=== PATIENT | female | born 1995 | race Hispanic/Latino ===

== ENCOUNTER 2017-11-02 17:37 | Emergency (ER) | payer SELFPAY ==
[2017-11-02 18:19] LABS: Absolute Lymphocytes (CBC) 2.5 K/uL (0.7-4.9); Absolute Monocytes 0.5 K/uL (0.1-1.3); Absolute Neutrophil 7.4 K/uL (1.8-8.0); Basophils % 0.5 % (0-1.3); Eosinophils % 1.6 % (0-4.4); Hematocrit 38.8 % (36.0-45.0); Lymphocytes % 23.4 % (15.3-44.8); MCH 29.8 pg (27.0-35.0); MCV 88.8 fL (80-100); MPV 8.3 fL (7.6-11.3); Monocytes % 4.6 % (3.3-12.3); RBC Red Blood Cell Count 4.37 M/uL (3.86-4.86)
[2017-11-02 18:34] LABS: BUN Blood Urea Nitrogen 8 mg/dL (6-20); Bicarbonate 28 mEq/L (21-31); Glucose Level 90 mg/dL (65-120); Potassium 3.2 mEq/L (3.6-5.0); Sodium Level 141 mEq/L (135-145)
[2017-11-02 18:39] LABS: Urine Blood NEGATIVE (NEG); Urine Glucose NEGATIVE (NEG); Urine Protein 1+ (NEG); Urine Specific Gravity >1.030 (1.005-1.030); Urine pH 5.5 (5.0-7.0)
[2017-11-02] MEDS ORDERED: ACETAMINOPHEN 500 MG TAB ONE (19:52)
--- NOTE | 2017-11-02 20:07 | RAD REPORT ---
EXAM DESCRIPTION: US - Transvaginal OB - 11/02/2017 7:40 pm CLINICAL HISTORY: Pelvic pain COMPARISON: None. FINDINGS: A single gestational sac is seen within the uterus. Mean sac diameter is 10 mm correspondi ng to 5 weeks 4 days gestational age. No yolk sac or embryo is detected this time. Both ovaries are normal size, shape and echotexture with normal Doppler blood flow. IMPRESSION: Findings of an early IUP are present with a gestational sac noted.No embryonic component s are seen at this time. Advise followup sonography in 10-12 days.
[2017-11-02] MEDS ORDERED: POTASSIUM 25 MEQ EFFERV TAB ONE (20:35)
--- NOTE | 2017-11-02 21:52 | EDPHYS ---
Physician Documentation [facility] Name: Amanda Alvarado Age: 22 yrs Sex: Female : 1995 Arrival Date: 11/02/2017 Time: 17:41 Bed 15 Private MD: ED Physician Nicholas Ahumada HPI: 11/02 17:56 This 22 yrs old Female presents to ER via Ambulatory with complaints of 6wks cp , Abdominal Cramping. 17:56 The patient presents to the emergency department with abdominal pain, of the right cp lower abdomen, that started 3 day(s) ago, described as crampy. The estimated gestational age is 6 weeks. 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 - Social history:: Smoking status: Patient/guardian denies using tobacco. ROS: 18:00 Constitutional: Negative for body aches, chills, fever, poor PO intake. cp 18:00 Eyes: Negative for injury, pain, redness, and discharge. cp 18:00 ENT: Negative for drainage from ear(s), ear pain, sore throat, difficulty swallowing, cp difficulty handling secretions. 18:00 Cardiovascular: Negative for chest pain, edema, palpitations. cp 18:00 Respiratory: Negative for cough, shortness of breath, wheezing. 18:00 Abdomen/GI: Positive for abdominal cramps, of the right lower quadrant, Negative for vomiting, diarrhea, constipation, anorexia. 18:00 Back: Negative for radiated pain. 18:00 : Positive for vaginal discharge, Negative for urinary symptoms, vaginal bleeding. 18:00 Skin: Negative for cellulitis, rash. 18:00 All other systems are negative. Exam: 18:10 Constitutional: The patient appears in no acute distress, alert, awake, cp non-diaphoretic, non-toxic, well developed, well nourished. 18:10 Head/Face: Normocephalic, atraumatic. cp 18:10 Eyes: Periorbital structures: appear normal, Conjunctiva: normal, Sclera: no cp appreciated abnormality, Lids and lashes: appear normal, bilaterally. 18:10 ENT: External ear(s): are unremarkable, Nose: is normal, Mouth: is normal, Posterior pharynx: is normal, airway is patent. 18:10 Chest/axilla: Inspection: normal, Palpation: is normal, no crepitus, no tenderness. 18:10 Cardiovascular: Rate: normal, Rhythm: regular. 18:10 Respiratory: the patient does not display signs of respiratory distress, Respirations: cp normal, no use of accessory muscles, no retractions, no splinting, no tachypnea, labored breathing, is not present, Breath sounds: are clear throughout, no decreased breath sounds, no stridor, no wheezing. 18:10 Abdomen/GI: Inspection: abdomen appears normal, Bowel sounds: active, all quadrants, Palpation: soft, in all quadrants, mild abdominal tenderness, in the right lower quadrant, rebound tenderness, is not appreciated, voluntary guarding, is not appreciated, involuntary guarding, is not appreciated. 18:10 Back: pain, is absent, ROM is normal. cp 18:10 Skin: cellulitis, is not appreciated, no rash present. 21:14 : Pelvic Exam: External exam: is normal, Speculum exam: no bleeding is noted, no cp cervicitis, os that is closed, bimanual exam reveals normal findings, discharge, Debbie guevara, CHANDRA. Sexual behavior: the patient is sexually active, and reports a single partner. Vital Signs: 17:43 BP 143 / 81; Pulse 85; Resp 16; Temp 98.4; Pulse Ox 100% on R/A; Weight 81.65 kg; la1 Height 4 ft. 9 in. (144.78 cm); 19:38 BP 116 / 75; Pulse 88; Resp 17 S; Pulse Ox 99% on R/A; jd3 21:00 BP 121 / 75; Pulse 91; Resp 17 S; Pulse Ox 99% on R/A; jd3 17:43 Body Mass Index 38.95 (81.65 kg, 144.78 cm) la1 MDM: 17:46 Patient medically screened. cp 18:00 Differential diagnosis: STD, ectopic , UTI. cp 21:50 Data reviewed: vital signs, nurses notes, lab test result(s), radiologic studies, cp ultrasound. 21:50 Counseling: I had a detailed discussion with the patient and/or guardian regarding: the cp historical points, exam findings, and any diagnostic results supporting the discharge/admit diagnosis, lab results, radiology results, the need for outpatient follow up, an OB/Gyne specialist, to return to the emergency department if symptoms worsen or persist or if there are any questions or concerns that arise at home. 21:50 Response to treatment: the patient's symptoms have markedly improved after treatment. cp 21:50 Special discussion: Based on the patient's Hx, exam, and Dx evaluation, there is no cp indication for emergent surgery or inpatient Tx. It is understood by the patient/guardian that if the Sx's persist or worsen they need to return immediately for re-evaluation. 11/02 17:56 Order name: Quantitative Hcg; Complete Time: 19:10 11/02 19:10 Interpretation: HCGQ 73011.0; Reviewed. 11/02 17:56 Order name: Abo/rh Typing; Complete Time: 18:59 11/02 18:59 Interpretation: Reviewed. 11/02 17:56 Order name: Basic Metabolic Panel; Complete Time: 19:10 11/02 18:45 Interpretation: Normal except: K 3.2. 11/02 17:56 Order name: CBC with Diff; Complete Time: 18:44 11/02 18:10 Order name: Urine Dipstick--Ancillary (enter results) ms 11/02 18:10 Order name: Urine --Ancillary (enter results) ms 11/02 18:11 Order name: Urine Dipstick-Ancillary; Complete Time: 18:44 EDNE 11/02 18:45 Interpretation: Normal except: UKET 1+; UPROT 1+. 11/02 18:11 Order name: Urine --Ancillary; Complete Time: 18:44 EDNE 11/02 19:18 Order name: Transvaginal OB; Complete Time: 20:10 EDNE 11/02 20:23 Order name: Wet Prep; Complete Time: 21:50 11/02 20:23 Order name: GC (GONORR/CHLAMYDIA) Probe 11/02 17:56 Order name: Urine Test (obtain specimen); Complete Time: 18:03 11/02 17:56 Order name: IV Saline Lock; Complete Time: 18:13 cp 11/02 17:56 Order name: Labs collected and sent; Complete Time: 18:13 cp 11/02 17:56 Order name: NPO; Complete Time: 18:03 cp 11/02 17:56 Order name: Urine Dipstick-Ancillary (obtain specimen); Complete Time: 18:03 cp 11/02 20:23 Order name: Pelvic Exam Setup; Complete Time: 20:55 cp Administered Medications: 19:38 Drug: Tylenol 1000 mg Route: PO; jd3 22:03 Follow up: Response: No adverse reaction jd3 20:21 Drug: Potassium Effervescent Tablet 50 mEq Route: PO; jd3 22:02 Follow up: Response: No adverse reaction jd3 Disposition: 11/02/17 21:51 Discharged to Home. Impression: related conditions, unspecified, first trimester, Lower abdominal pain, unspecified. - Condition is Stable. - Discharge Instructions: Abdominal Pain During , Medicines During , Pelvic Rest. - Prescriptions for Vitamin 27- 0.8 mg Oral Tablet - take 1 tablet by ORAL route once daily; 60 tablet. - Medication Reconciliation Form, Thank You Letter, Antibiotic Education, Prescription Opioid Use form. - Follow up: Private Physician; When: primary SCHEDULE SUPERVISOR, next 10-14 days; Reason: Recheck today's complaints. - Problem is new. - Symptoms have improved. - Notes: pelvic rest until follow-up and release by SCHEDULE SUPERVISOR Addendum: 11/04/2017 07:27 Co-signature as Attending Physician, Nicholas Ahumada MD. g s Signatures: Dispatcher [employer] EDMS Yuri Lugo RN RN la1 Kishan Lizama PA PA cp Starr, Gregory, MD MD gs Grant Garcia RN RN jd3 Corrections: (The following items were deleted from the chart) 11/02 19:18 19:11 Transvaginal Study (Probe)+[email or web address].RAD.[email or web address] ordered. EDMS EDMS
--- NOTE | 2017-11-02 21:52 | ER ---
Nurse's Notes [facility] Name: Amanda Alvarado Age: 22 yrs Sex: Female : 1995 Arrival Date: 11/02/2017 Time: 17:41 Bed 15 Private MD: Diagnosis: related conditions, unspecified, first trimester;Lower abdominal pain, unspecified Presentation: 11/02 17:42 Presenting complaint: Patient states: LMP 09/21/2017. abd cramping for 3 days. No la1 bleeding. Transition of care: patient was not received from another setting of care. Onset of symptoms was November 02, 2017. Care prior to arrival: None. 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 - Social history:: Smoking status: Patient/guardian denies using tobacco. Screenin:03 Abuse screen: Denies threats or abuse. Nutritional screening: No deficits noted. em Tuberculosis screening: No symptoms or risk factors identified. Fall Risk None identified. Assessment: 17:55 General: Appears in no apparent distress. comfortable, Behavior is calm, cooperative. em Pain: Complains of pain in right inguinal area Pain currently is 6 out of 10 on a pain scale. Quality of pain is described as crampy, Pain began 2-3 days ago. Neuro: Level of Consciousness is awake, alert, obeys commands, Oriented to person, place, time, situation. Cardiovascular: Capillary refill < 3 seconds Patient's skin is warm and dry. Respiratory: Airway is patent Respiratory effort is even, unlabored, Respiratory pattern is regular, symmetrical. GI: Abdomen is round non-distended, Bowel sounds present X 4 quads. Abd is soft X 4 quads Abdomen is tender to palpation in right lower quadrant Patient currently denies diarrhea, nausea, vomiting. : Urine is clear. EENT: No signs and/or symptoms were reported regarding the EENT system. Derm: Skin is intact, Skin is pink, warm \T\ dry. Musculoskeletal: Range of motion: intact in all extremities. 18:06 Reassessment: Patient appears in no apparent distress at this time. I agree with above iw assessment by Chao Gonzalez LVN. 18:37 Reassessment: Patient appears in no apparent distress at this time. Patient and/or em family updated on plan of care and expected duration. Pain level reassessed. Patient is alert, oriented x 3, equal unlabored respirations, skin warm/dry/pink. 19:39 Reassessment: Patient appears in no apparent distress at this time. No changes from jd3 previously documented assessment. Patient and/or family updated on plan of care and expected duration. Pain level reassessed. Patient is alert, oriented x 3, equal unlabored respirations, skin warm/dry/pink. 21:01 Reassessment: Patient appears in no apparent distress at this time. Patient and/or jd3 family updated on plan of care and expected duration. Pain level reassessed. Patient is alert, oriented x 3, equal unlabored respirations, skin warm/dry/pink. Patient states feeling better. 21:52 Reassessment: Patient appears in no apparent distress at this time. Patient and/or jd3 family updated on plan of care and expected duration. Pain level reassessed. Patient is alert, oriented x 3, equal unlabored respirations, skin warm/dry/pink. Patient states feeling better. 22:00 Reassessment: Patient appears in no apparent distress at this time. Patient and/or jd3 family updated on plan of care and expected duration. Pain level reassessed. Patient is alert, oriented x 3, equal unlabored respirations, skin warm/dry/pink. pt reported understanding of discharge instructions, even and steady gait upon discharge. Vital Signs: 17:43 BP 143 / 81; Pulse 85; Resp 16; Temp 98.4; Pulse Ox 100% on R/A; Weight 81.65 kg; la1 Height 4 ft. 9 in. (144.78 cm); 19:38 BP 116 / 75; Pulse 88; Resp 17 S; Pulse Ox 99% on R/A; jd3 21:00 BP 121 / 75; Pulse 91; Resp 17 S; Pulse Ox 99% on R/A; jd3 17:43 Body Mass Index 38.95 (81.65 kg, 144.78 cm) la1 ED Course: 17:41 Patient arrived in ED. mr 17:43 Triage completed. la1 17:44 Arm band placed on left wrist. la1 17:46 Kishan Lizama PA is PHCP. cp 17:46 Nicholas Ahumada MD is Attending Physician. cp 17:51 Chao Gonzalez LVN is Primary Nurse. em 18:03 Patient has correct armband on for positive identification. Placed in gown. Bed in low em position. Call light in reach. Side rails up X2. 18:03 No provider procedures requiring assistance completed. em 19:02 Primary Nurse role handed off by Chao Gonazlez LVN rg2 19:13 Report given to CHANDRA Burns. em 19:29 Grant Garcia RN is Primary Nurse. jd3 19:40 Ultrasound completed. Patient tolerated well. cy 19:40 Transvaginal OB In Process Unspecified. EDMS 22:02 IV discontinued, intact, bleeding controlled, No redness/swelling at site. Pressure jd3 dressing applied. Administered Medications: 19:38 Drug: Tylenol 1000 mg Route: PO; jd3 22:03 Follow up: Response: No adverse reaction jd3 20:21 Drug: Potassium Effervescent Tablet 50 mEq Route: PO; jd3 22:02 Follow up: Response: No adverse reaction jd3 Outcome: 21:51 Discharge ordered by MD. cp 22:01 Discharged to home ambulatory. jd3 22:01 Condition: stable 22:01 Discharge instructions given to patient, Instructed on discharge instructions, follow up and referral plans. medication usage, Demonstrated understanding of instructions, follow-up care, medications, Prescriptions given X 1. 22:03 Patient left the ED. jd3 Signatures: Dispatcher [employer] EDMS Sabine Rhodes rg2 Francia Lester Chao Gonzalez LVN GEOMAGNETICIAN em Mely Flannery RN RN Yuri Lugo RN RN la1 Kishan Lizama PA PA cp Davies, Jonathon, RN RN jChandrika Pickering cy
[2017-11-05 20:03] LABS: C.trachomatis RNA,TMA Not Detected (Not Detected)
== END 2017-11-02 22:03 | disposition home or self-care (01) ==
LOC: ER 17:37
DX: R10.30 Lower abdominal pain, unspecified (principal); Z3A.01 Less than 8 weeks gestation of pregnancy
CPT/HCPCS: 36415; 76817; 80048; 81003; 81025; 84702; 85025; 86900; 86901; 87210; 87490; 87590; 99283

== ENCOUNTER 2018-06-15 21:09 | Inpatient (IN) | payer OTHER ==
[2018-06-16] MEDS ORDERED: MIDAZOLAM HCL 2 MG/2 ML INJ IV PRN (05:45)
[2018-06-16] MEDS ORDERED: PENICILLIN 5 MU in NA CHLORIDE 0.9% 100 ML IV ONE (05:45)
[2018-06-16] MEDS ORDERED: MEPERIDINE HCL 25 MG/0.5 ML IV PRN (05:45)
[2018-06-16] MEDS ORDERED: METHYLERGONOVINE 0.2MG/ML AMP IM PRN (05:45)
[2018-06-16] MEDS ORDERED: BUTORPHANOL 1 MG/ML INJ IV PRN (05:45)
[2018-06-16] MEDS ORDERED: CARBOPROST TROME 250 MCG/ML IM PRN (05:45)
[2018-06-16] MEDS ORDERED: Ringers Lactate 1,000 ML IV PRN (05:45)
[2018-06-16] MEDS ORDERED: PROMETHAZINE 25 MG/ML VIAL IM PRN (05:45)
[2018-06-16] MEDS ORDERED: PENICILLIN G POT 5 MU/100 ML BAG IV ONE (05:57)
[2018-06-16] MEDS ORDERED: Ringers Lactate 1,000 ML IV SCH (06:00)
[2018-06-16] MEDS ORDERED: OXYTOCIN/LR 20 UNITS/1,000 ML BAG IV SCH (06:00)
[2018-06-16 06:27] VITALS: BMI 52.3
[2018-06-16 06:42] LABS: RPR Titer ND
[2018-06-16 07:11] LABS: Absolute Lymphocytes (CBC) 1.8 K/uL (0.7-4.9); Absolute Monocytes 0.5 K/uL (0.1-1.3); Absolute Neutrophil 7.2 K/uL (1.8-8.0); Eosinophils % 1.2 % (0-4.4); Hematocrit 34.1 % (36.0-45.0); Lymphocytes % 18.8 % (15.3-44.8); MCH 30.9 pg (27.0-35.0); MPV 9.9 fL (7.6-11.3); Monocytes % 5.5 % (3.3-12.3); RBC Red Blood Cell Count 3.79 M/uL (3.86-4.86)
[2018-06-16] MEDS ORDERED: FENTANYL/BUPIVACAINE/NS/PF 200 MCG/100 ML BAG EP PRN (07:43)
[2018-06-16] MEDS ORDERED: FENTANYL CITR 100 MCG/2 ML IV ONE (07:44)
[2018-06-16] MEDS ORDERED: ROPIVACAINE HCL 0.2% 20ML AMP IV ONE (07:49)
[2018-06-16] MEDS ORDERED: BUPIVACAINE 0.25% PF 10 ML VIAL IV ONE (08:56)
[2018-06-16] MEDS ORDERED: PENICILLIN 2.5 MU in NA CHLORIDE 0.9% 100 ML IV SCH (09:00)
--- NOTE | 2018-06-16 09:19 | PREOPHP ---
Date of Admission: 06/15/2018 This is a 23-year-old 2, para 1, best estimate is 38 weeks, possibly 38 weeks 1 day, came in last night, noted to be 4 cm, progressed to 5 cm. We are now starting penicillin prophylaxis as she is beta strep positive. We will start Pitocin augmentation and rupture of membranes sometime within next half hour to hour. Full labor talk given. She is Rh positive, immune to Rubella. Anticipate d elivery sometime later today. The patient had epidural with her first labor and delivery, has not ex pressed a desire for any kind of medications at this point. LEIGH/GIANLUCA Voice ID: [id number]
--- NOTE | 2018-06-16 12:01 | PN ---
The patient is now 5-1/2, 70% effaced, vertex, -1 station, well applied. Rupture of membranes, clear fluid. Brooks regularly now. Anticipate more rapid progress from this point forward. LEIGH/GIANLUCA Voice ID: [id number] Report ID: [id number]
[2018-06-16] MEDS ORDERED: DIPHENHYDRAMINE 25 MG TAB/CAP PO PRN (13:08)
[2018-06-16] MEDS ORDERED: DOCUSATE NA/SENNA CONC 1 TAB PO PRN (13:08)
[2018-06-16] MEDS ORDERED: Oxycodone HCl/Acetaminophen 1 TAB TAB PO PRN ×2 (13:08)
[2018-06-16] MEDS ORDERED: ACETAMINOPHEN 500 MG TAB PO PRN (13:08)
[2018-06-16] MEDS ORDERED: BISACODYL 10 MG RECTAL SUPP RECT PRN (13:08)
[2018-06-16] MEDS ORDERED: IBUPROFEN 200 MG TAB PO PRN (13:08)
--- NOTE | 2018-06-16 13:52 | PN ---
The patient is 9+, +1 station, just about ready to start pushing. LEIGH/GIANLUCA Voice ID: [id number] Report ID: [id number]
--- NOTE | 2018-06-16 13:55 | OP ---
Surgeon: Antonio Ochoa MD A 23-year-old, 2, para 1, best estimate 38 weeks and 1 day, came in 4 cm, during the period o f observation changed to 5 cm. She was started on penicillin prophylaxis as she was beta strep posit faby. Two doses were given during the labor. At 5 cm, about an hour and a half after the penicillin had been started, she was started on Pitocin and rupture of membranes was performed. The patient deisy t rapidly to complete. She received epidural anesthesia at approximately 6 to 7 cm. Second stage of 20 minutes approximately. Spontaneous vaginal delivery of an estimated 7-pound female, Apgars 8 and 9. No episiotomy. No lacerations. Potts delivery of the placenta was inspected and noted to be intact and normal. Less than 300 cc blood loss. The patient is Rh positive, immune to Rubella. Adriana erated all procedures well. Final Diagnoses: Intrauterine gestation, 38 weeks and 1 day, spontaneous labor, vaginal delivery, ep idural anesthesia, penicillin prophylaxis. LEIGH/GIANLUCA Voice ID: [id number] Report ID: [id number]
[2018-06-16] MEDS ORDERED: OXYTOCIN/LR 20 UNIT/1,000 ML BAG IV SCH (14:00)
[2018-06-16 22:47] LABS: RPR (Rapid Plasma Reagin) NON-REACT (NON-REACT)
[2018-06-17 13:59] VITALS: BP 120/81; TEMP 97
--- NOTE | 2018-06-18 03:54 | DS ---
Date of Discharge: 06/17/2018 Hospital Course: A 23-year-old, 2, para 1, at 38 weeks 1 day, came in active labor. Deliver ed an estimated 7 pounds female, Apgars 8 and 9. No episiotomy. No lacerations. Schultze delivery of the placenta. A 300 cc or less blood loss. Epidural anesthesia, gave good effect. Penicillin pr ophylaxis x2 during the labor. ; afebrile, ambulating, and voiding. Lochia is normal. Wi ll be dismissed later today to report back to my office in 6 weeks for followup. To report any tempe rature elevation of 100 degrees or greater, severe pain, heavy bleeding, or any other type of abnorma lities. Dismissed with tramadol for analgesia, although she may elect to take Motrin instead since s he is breast feeding. No post epidural problems. She is Rh positive, immune to Rubella. She has mayorga d her Tdap shot during the and a flu shot. Final Diagnoses: Term intrauterine , 38 weeks 1 day, vaginal delivery, epidural anesthesia. Penicillin prophylaxis. LEIGH/GIANLUCA Voice ID: [id number] Report ID: [id number]
[2018-06-19 16:44] LABS: HBsAG Nonreactive (Nonreactive)
== END 2018-06-17 15:50 | disposition home or self-care (01) | DRG 807 ==
LOC: L&D 21:09 → 2ND-WC 23:35
PROVIDERS: ADMIT Specialist; ATTEND Specialist
PROC: 10E0XZZ Delivery of Products of Conception, External Approach (ICD-10-PCS; principal; 2018-06-16)
PROC: 3E033VJ Introduction of Other Hormone into Peripheral Vein, Percutaneous Approach (ICD-10-PCS; 2018-06-16)
PROC: 10907ZC Drainage of Amniotic Fluid, Therapeutic from Products of Conception, Via Natural or Artificial Opening (ICD-10-PCS; 2018-06-16)
DX: O99.824 Streptococcus B carrier state complicating childbirth (principal); Z37.0 Single live birth; Z3A.38 38 weeks gestation of pregnancy
CPT/HCPCS: 36415; 85025; 86592; 86850; 86900; 86901; 87340; 99218; J2590; J3010